=== PATIENT | female | born 1960 | race Caucasian/White ===

== ENCOUNTER → 2018-07-04 | Outpatient (CLI) | payer SELFPAY ==
--- NOTE | 2018-07-04 11:19 | RAD ---
CT of the head without contrast, 07/04/2018: HISTORY: Headache There is mild cerebral atrophy which is most prominent in the left temporal lobe. 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 The ventricles are within normal limits in size. There is no shift of the midline structures. There is no evidence of acute intracranial hemorrhage or mass effect. IMPRESSION: 1. 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 2. No acute intracranial abnormality is detected. PQRS Compliance Statement: One or more of the following individualized dose reduction techniques were utilized for this examination: 1. Automated exposure control 2. Adjustment of the mA and/or kV according to patient size 3. Use of iterative reconstruction technique Electronically signed by: Yaw Kimball MD (07/04/2018 11:16 AM) [facility]
== END | disposition home or self-care (01) ==
LOC: CT 10:44
DX: G31.89 Other specified degenerative diseases of nervous system (principal); Z86.73 Personal history of transient ischemic attack (TIA), and cerebral infarction without residual deficits
CPT/HCPCS: 70450